=== PATIENT | female | born 1980 | race Caucasian/White ===

== ENCOUNTER 2016-08-28 07:11 | Inpatient (IN) | payer MEDICAID ==
[~2016-08-28] VITALS: Ht 167.6 cm; Wt 90.0 kg
[~2016-08-28 07:11] MED LIST: BUTA-177 PO; CLON-364 PO; FLUO20CA8 PO; GABA-827 PO; INSU100C5 SQ; INSU100I13 SQ; INSU100V5 SQ-INSULIN; INSU100V8 SQ; LISI-167 PO; LORA2TAB99 PO; MULT-194 PO; NORE-88 PO; OMEP-110 PO
[2016-08-28] MEDS ORDERED: ONDANSETRON 2MG/ML, 2ML ONE ×2 (07:35→08:06)
[2016-08-28 07:51] LABS: PH, VENOUS 7.271 pH (7.320-7.420)
[2016-08-28] MEDS ORDERED: ONDANSETRON 2MG/ML, 2ML IVPush ONE ×2 (08:00→08:30)
[2016-08-28] MEDS ORDERED: SODIUM CHLORIDE 0.9% 1,000ML IVBOLUS ONE ×2 (08:00→09:30)
[2016-08-28 08:04] LABS: ASPARTATE AMINO TRANSFERASE 174 U/L (15-37); BLOOD UREA NITROGEN 11 mg/dL (7-18)
[2016-08-28 08:21] LABS: PATH.CAST-FLAG NOT PRESENT; SPERM-FLAG NOT PRESENT; SRC-FLAG NOT PRESENT; XTAL-FLAG NOT PRESENT; YLC-FLAG NOT PRESENT
[2016-08-28] MEDS ORDERED: DIPHENHYDRAMINE 50 MG/ML, 1ML ONE (08:25)
[2016-08-28] MEDS ORDERED: FAMOTIDINE 20 MG/2 ML ONE (08:25)
[2016-08-28] MEDS ORDERED: METOCLOPRAMIDE 5 MG/ML, 2ML ONE (08:25)
[2016-08-28] MEDS ORDERED: METOCLOPRAMIDE 5 MG/ML, 2ML IVPush ONE (08:30)
[2016-08-28] MEDS ORDERED: DIPHENHYDRAMINE 50 MG/ML, 1ML IVPush ONE (08:30)
[2016-08-28] MEDS ORDERED: FAMOTIDINE 20 MG/2 ML IVPush ONE (08:30)
[2016-08-28] MEDS ORDERED: LISI40TA PO (09:41)
[2016-08-28] MEDS ORDERED: SERT25TA PO (09:41)
[2016-08-28] MEDS ORDERED: SODIUM CHLORIDE 0.9% 1,000 ML IV SCH (10:36)
[2016-08-28] MEDS: SODIUM CHLORIDE 0.9% 1,000 ML IV SCH ×2 (10:50→12:00)
[2016-08-28 10:59] LABS: BLOOD UREA NITROGEN 13 mg/dL (7-18)
[2016-08-28] MEDS ORDERED: ONDANSETRON ODT 4 MG PO PRN (11:00)
[2016-08-28] MEDS ORDERED: POLYETHYLENE GLYCOL 17 GM PACKET PO PRN (11:00)
[2016-08-28] MEDS ORDERED: LABETALOL 5MG/ML, 20ML IV PRN (11:00)
[2016-08-28] MEDS ORDERED: GUAIFENESIN/DM 200-20MG, 10ML UDC PO PRN (11:00)
[2016-08-28] MEDS ORDERED: MORPHINE SULFATE 4 MG/ML, 1ML IVPush PRN (11:00)
[2016-08-28] MEDS ORDERED: INSULIN DETEMIR 100 UNITS/ML, PEN SQ-INSULIN SCH (11:30)
[2016-08-28] MEDS: MAALOX/HYOSCYAMINE/LIDOCAINE 45 ML BOTTLE PO SCH ×2 (11:38→22:57)
[2016-08-28] MEDS: INSULIN REGULAR 100 UNITS/ML, 3ML VIAL SQ-INSULIN SCH ×3 (11:41→21:13)
[2016-08-28 11:53] VITALS: BP 148/79
[2016-08-28 12:31] VITALS: BP 145/94
[2016-08-28] MEDS: ENOXAPARIN 40 MG/0.4 ML SQ SCH (12:43)
[2016-08-28 14:18] LABS: BLOOD UREA NITROGEN 11 mg/dL (7-18)
[2016-08-28] MEDS: BUTALB/APAP/CAFFEINE 50MG/325MG/40MG PO PRN (15:18)
[2016-08-28] MEDS: ONDANSETRON 2MG/ML, 2ML IVP PRN (15:29)
[2016-08-28] MEDS: GABAPENTIN 400 MG CAPSULE PO SCH ×2 (16:00→21:12)
[2016-08-28] MEDS ORDERED: PROCHLORPERAZINE 5 MG/ML, 2ML IVPush ONE (17:30)
[2016-08-28] MEDS ORDERED: SODIUM BICARBONATE 8.4% 150 MEQ in DEXTROSE 5% 1,000 ML IV ONE (17:30)
[2016-08-28 20:11] VITALS: BP 139/83
[2016-08-28] MEDS: INSULIN DETEMIR 100 UNITS/ML, PEN SQ-INSULIN SCH (22:56)
[2016-08-29 00:37] LABS: BLOOD UREA NITROGEN 10 mg/dL (7-18)
[2016-08-29 02:59] VITALS: BP 127/76
[2016-08-29 06:05] LABS: BLOOD UREA NITROGEN 9 mg/dL (7-18)
[2016-08-29 07:34] VITALS: BP 131/88
[2016-08-29] MEDS: INSULIN REGULAR 100 UNITS/ML, 3ML VIAL SQ-INSULIN SCH ×4 (08:30→22:21)
[2016-08-29] MEDS: MAALOX/HYOSCYAMINE/LIDOCAINE 45 ML BOTTLE PO SCH ×2 (08:30→22:19)
[2016-08-29] MEDS: MULTIVITAMINS/MINERALS TABLET PO SCH (08:31)
[2016-08-29] MEDS: SENNA/DOCUSATE TABLET PO SCH (08:31)
[2016-08-29] MEDS: GABAPENTIN 400 MG CAPSULE PO SCH ×3 (08:31→22:19)
[2016-08-29] MEDS: BUTALB/APAP/CAFFEINE 50MG/325MG/40MG PO PRN ×2 (08:31→22:19)
[2016-08-29] MEDS: OMEPRAZOLE 20 MG CAPSULE.DR PO SCH (08:31)
[2016-08-29] MEDS: SERTRALINE 50MG TABLET PO SCH (08:32)
[2016-08-29] MEDS: LISINOPRIL 20 MG TABLET PO SCH (08:32)
[2016-08-29] MEDS ORDERED: SODIUM CHLORIDE 0.9% 1,000 ML IV SCH ×2 (10:36)
[2016-08-29] MEDS: ENOXAPARIN 40 MG/0.4 ML SQ SCH (11:55)
[2016-08-29 12:24] VITALS: BP 134/91
[2016-08-29] MEDS: HYDROcodone/APAP 5/325 TABLET PO PRN (17:17)
[2016-08-29 19:55] VITALS: BP 120/90
[2016-08-29] MEDS: INSULIN DETEMIR 100 UNITS/ML, PEN SQ-INSULIN SCH (22:20)
[2016-08-30 01:43] VITALS: BP 120/75
[2016-08-30] MEDS: ONDANSETRON 2MG/ML, 2ML IVP PRN ×2 (05:49→14:30)
[2016-08-30] MEDS: HYDROcodone/APAP 5/325 TABLET PO PRN ×3 (05:49→16:58)
[2016-08-30 05:59] LABS: ASPARTATE AMINO TRANSFERASE 185 U/L (15-37); BLOOD UREA NITROGEN 8 mg/dL (7-18)
[2016-08-30] MEDS: MULTIVITAMINS/MINERALS TABLET PO SCH (07:47)
[2016-08-30] MEDS: OMEPRAZOLE 20 MG CAPSULE.DR PO SCH (07:47)
[2016-08-30] MEDS: GABAPENTIN 400 MG CAPSULE PO SCH ×3 (07:47→21:35)
[2016-08-30] MEDS: LISINOPRIL 20 MG TABLET PO SCH (07:47)
[2016-08-30] MEDS: SERTRALINE 50MG TABLET PO SCH (07:47)
[2016-08-30] MEDS: SENNA/DOCUSATE TABLET PO SCH (07:47)
[2016-08-30] MEDS: INSULIN REGULAR 100 UNITS/ML, 3ML VIAL SQ-INSULIN SCH ×4 (07:49→21:37)
[2016-08-30] MEDS: MAALOX/HYOSCYAMINE/LIDOCAINE 45 ML BOTTLE PO SCH ×2 (09:54→21:37)
[2016-08-30] MEDS: SODIUM CHLORIDE 0.9% 1,000 ML IV SCH ×3 (10:02→21:37)
[2016-08-30] MEDS: ENOXAPARIN 40 MG/0.4 ML SQ SCH (10:47)
[2016-08-30] MEDS: BUTALB/APAP/CAFFEINE 50MG/325MG/40MG PO PRN (14:30)
[2016-08-30 14:42] VITALS: BP 130/82
[2016-08-30 19:19] VITALS: BP 125/84
[2016-08-30] MEDS: INSULIN DETEMIR 100 UNITS/ML, PEN SQ-INSULIN SCH (21:36)
[2016-08-31 02:00] VITALS: BP 131/87
[2016-08-31] MEDS: SODIUM CHLORIDE 0.9% 1,000 ML IV SCH (04:21)
[2016-08-31 06:36] LABS: BLOOD UREA NITROGEN 8 mg/dL (7-18)
[2016-08-31 07:31] VITALS: BP 150/101
[2016-08-31] MEDS: MULTIVITAMINS/MINERALS TABLET PO SCH (08:38)
[2016-08-31] MEDS: GABAPENTIN 400 MG CAPSULE PO SCH (08:39)
[2016-08-31] MEDS: LISINOPRIL 20 MG TABLET PO SCH (08:39)
[2016-08-31] MEDS: OMEPRAZOLE 20 MG CAPSULE.DR PO SCH (08:39)
[2016-08-31] MEDS: MAALOX/HYOSCYAMINE/LIDOCAINE 45 ML BOTTLE PO SCH (08:39)
[2016-08-31] MEDS: SERTRALINE 50MG TABLET PO SCH (08:40)
[2016-08-31] MEDS: SENNA/DOCUSATE TABLET PO SCH (08:41)
[2016-08-31] MEDS: INSULIN REGULAR 100 UNITS/ML, 3ML VIAL SQ-INSULIN SCH (08:43)
[2016-08-31] MEDS: HYDROcodone/APAP 5/325 TABLET PO PRN (09:09)
[2016-08-31] MEDS ORDERED: ALPR-475 PO (09:54)
[2016-08-31] MEDS ORDERED: PNEUMOCOCCAL 23 VACCINE IM-VACC ONE (12:00)
== END 2016-08-31 12:25 | disposition home or self-care (01) | DRG 637 ==
LOC: ED 08:56 → EDIP 09:32 → 4WST 12:17 → DCLOUNGE 08-31 12:03
PROVIDERS: ADMIT Hospitalist; ATTEND Hospitalist
DX: E10.10 Type 1 diabetes mellitus with ketoacidosis without coma (principal); N17.0 Acute kidney failure with tubular necrosis; I10 Essential (primary) hypertension; F17.210 Nicotine dependence, cigarettes, uncomplicated; E86.0 Dehydration; D72.829 Elevated white blood cell count, unspecified; F41.0 Panic disorder [episodic paroxysmal anxiety]; K76.0 Fatty (change of) liver, not elsewhere classified; E10.40 Type 1 diabetes mellitus with diabetic neuropathy, unspecified; Z90.49 Acquired absence of other specified parts of digestive tract; Z79.4 Long term (current) use of insulin
CPT/HCPCS: 36415; 71020; 76700; 80048; 80053; 80061; 81001; 82010; 82040; 82803; 82962; 83036; 83690; 83735; 84100; 84439; 84443; 85025; 90732; 93005; 96361; 96374; 96375; 96376; J1650; J1815; J2405; J7070; Q0162; J0780; J1200; J2765; J7030; S0028

== ENCOUNTER 2016-11-08 04:26 | Inpatient (IN) | payer MEDICAID ==
[~2016-11-08] VITALS: Ht 167.6 cm; Wt 95.4 kg
[~2016-11-08 04:26] MED LIST changes: +ALPR-475 PO; +LISI40TA PO; +SERT25TA PO
[2016-11-08] MEDS ORDERED: ONDANSETRON 2MG/ML, 2ML ONE (04:58)
[2016-11-08] MEDS ORDERED: SODIUM CHLORIDE 0.9% 1,000 ML IV ONE ×2 (05:09→06:44)
[2016-11-08] MEDS ORDERED: FAMOTIDINE 20 MG/2 ML ONE (05:14)
[2016-11-08] MEDS ORDERED: PROMETHAZINE 25 MG/ML, 1ML ONE (05:14)
[2016-11-08] MEDS ORDERED: MORPHINE SULFATE 4 MG/ML, 1ML ONE ×2 (05:14→09:04)
[2016-11-08] MEDS: MORPHINE SULFATE 4 MG/ML, 1ML IVPush PRN ×3 (05:18→20:46)
[2016-11-08] MEDS ORDERED: INSU300I SC (05:26)
[2016-11-08] MEDS ORDERED: PROMETHAZINE 25 MG/ML, 1ML IM ONE (05:30)
[2016-11-08] MEDS ORDERED: SODIUM CHLORIDE 0.9% 1,000ML IVBOLUS ONE ×3 (05:30→07:00)
[2016-11-08] MEDS ORDERED: FAMOTIDINE 20 MG/2 ML IVP ONE (05:30)
[2016-11-08] MEDS ORDERED: SODIUM CHLORIDE FLUSH 10ML SYR IVF ONE (05:30)
[2016-11-08 05:58] LABS: ASPARTATE AMINO TRANSFERASE 164 U/L (15-37); BLOOD UREA NITROGEN 10 mg/dL (7-18)
[2016-11-08] MEDS ORDERED: METOCLOPRAMIDE 5 MG/ML, 2ML ONE (06:26)
[2016-11-08] MEDS ORDERED: METOCLOPRAMIDE 5 MG/ML, 2ML IVPush ONE (06:30)
[2016-11-08] MEDS ORDERED: SODIUM CHLORIDE FLUSH 10ML SYR IVF PRN (07:00)
[2016-11-08] MEDS ORDERED: INSULIN REGULAR 100 UNITS/ML, 3ML VIAL SQ-INSULIN ONE (07:00)
[2016-11-08] MEDS ORDERED: ONDANSETRON 2MG/ML, 2ML IVPush PRN (07:30)
[2016-11-08] MEDS ORDERED: POLYETHYLENE GLYCOL 17 GM PACKET PO PRN (07:30)
[2016-11-08] MEDS ORDERED: ONDANSETRON ODT 4 MG PO PRN (07:30)
[2016-11-08] MEDS ORDERED: LABETALOL 5MG/ML, 20ML IVPush PRN (07:30)
[2016-11-08] MEDS ORDERED: GUAIFENESIN/DM 200-20MG, 10ML UDC PO PRN (07:30)
[2016-11-08] MEDS ORDERED: MAGNESIUM SULFATE PMX 2GM/50ML 50 ML IV ONE (08:00)
[2016-11-08 08:04] LABS: BLOOD UREA NITROGEN 11 mg/dL (7-18)
[2016-11-08 09:03] LABS: BLOOD UREA NITROGEN 13 mg/dL (7-18)
[2016-11-08] MEDS: NS + 20MEQ KCL 1,000 ML IV SCH ×2 (10:06→16:58)
[2016-11-08] MEDS: INSULIN DETEMIR 100 UNITS/ML, PEN SQ-INSULIN SCH ×2 (10:42→22:12)
[2016-11-08] MEDS: SENNA/DOCUSATE TABLET PO SCH (12:02)
[2016-11-08] MEDS: SERTRALINE 50MG TABLET PO SCH (12:02)
[2016-11-08] MEDS: MULTIVITAMINS WITH IRON TABLET PO SCH (12:03)
[2016-11-08] MEDS: LISINOPRIL 20 MG TABLET PO SCH (12:03)
[2016-11-08] MEDS: ENOXAPARIN 40 MG/0.4 ML SQ SCH (12:03)
[2016-11-08] MEDS: OMEPRAZOLE 20 MG CAPSULE.DR PO SCH (12:03)
[2016-11-08] MEDS: GABAPENTIN 400 MG CAPSULE PO SCH ×3 (12:03→20:45)
[2016-11-08] MEDS: INSULIN ASPART 100 UNITS/ML, PEN SQ-INSULIN SCH ×3 (12:04→20:54)
[2016-11-08 12:59] LABS: BLOOD UREA NITROGEN 12 mg/dL (7-18)
[2016-11-08 13:00] VITALS: BP 136/84
[2016-11-08 15:25] LABS: BLOOD UREA NITROGEN 8 mg/dL (7-18)
[2016-11-08] MEDS: ACETAMINOPHEN 325 MG TABLET PO PRN (17:08)
[2016-11-08 18:11] LABS: BLOOD UREA NITROGEN 8 mg/dL (7-18)
[2016-11-08 20:00] VITALS: BP 115/80
[2016-11-08] MEDS ORDERED: MAALOX/HYOSCYAMINE/LIDOCAINE 45 ML BOTTLE PO ONE (20:30)
[2016-11-08] MEDS: SODIUM BICARBONATE 650 MG TABLET PO SCH (20:45)
[2016-11-08] MEDS ORDERED: INSULIN GLARGINE HUM REC ANLOG 54 UNIT SC SCH (21:00)
[2016-11-09] MEDS: NS + 20MEQ KCL 1,000 ML IV SCH ×2 (00:30→06:40)
[2016-11-09 01:23] LABS: BLOOD UREA NITROGEN 7 mg/dL (7-18)
[2016-11-09 02:21] VITALS: BP 110/75
[2016-11-09] MEDS: MORPHINE SULFATE 4 MG/ML, 1ML IVPush PRN (06:20)
[2016-11-09 06:26] LABS: ASPARTATE AMINO TRANSFERASE 68 U/L (15-37); BLOOD UREA NITROGEN 6 mg/dL (7-18)
[2016-11-09 07:00] VITALS: BP 130/88
[2016-11-09] MEDS: INSULIN ASPART 100 UNITS/ML, PEN SQ-INSULIN SCH ×5 (07:00→20:38)
[2016-11-09] MEDS: SODIUM BICARBONATE 650 MG TABLET PO SCH ×2 (08:47→20:38)
[2016-11-09] MEDS: GABAPENTIN 400 MG CAPSULE PO SCH ×3 (08:47→20:38)
[2016-11-09] MEDS: SERTRALINE 50MG TABLET PO SCH (08:48)
[2016-11-09] MEDS: OMEPRAZOLE 20 MG CAPSULE.DR PO SCH (08:48)
[2016-11-09] MEDS: MULTIVITAMINS WITH IRON TABLET PO SCH (08:48)
[2016-11-09] MEDS: LISINOPRIL 20 MG TABLET PO SCH (08:48)
[2016-11-09] MEDS: ENOXAPARIN 40 MG/0.4 ML SQ SCH (08:48)
[2016-11-09] MEDS: INSULIN DETEMIR 100 UNITS/ML, PEN SQ-INSULIN SCH ×2 (08:49→22:07)
[2016-11-09] MEDS: SENNA/DOCUSATE TABLET PO SCH (08:49)
[2016-11-09] MEDS: SODIUM CHLORIDE 0.9% 1,000 ML IV SCH ×2 (11:21→22:06)
[2016-11-09 12:20] VITALS: BP 111/73
[2016-11-09] MEDS: ACETAMINOPHEN 325 MG TABLET PO PRN (17:03)
[2016-11-09 18:27] VITALS: BP 150/97
[2016-11-10 00:57] VITALS: BP 127/78
[2016-11-10 06:10] LABS: ASPARTATE AMINO TRANSFERASE 80 U/L (15-37); BLOOD UREA NITROGEN 6 mg/dL (7-18)
[2016-11-10 08:00] VITALS: BP 141/79
[2016-11-10] MEDS: SODIUM CHLORIDE 0.9% 1,000 ML IV SCH ×2 (08:04→21:12)
[2016-11-10] MEDS: SERTRALINE 50MG TABLET PO SCH (08:36)
[2016-11-10] MEDS: SODIUM BICARBONATE 650 MG TABLET PO SCH ×2 (08:36→21:09)
[2016-11-10] MEDS: OMEPRAZOLE 20 MG CAPSULE.DR PO SCH (08:37)
[2016-11-10] MEDS: MULTIVITAMINS WITH IRON TABLET PO SCH (08:37)
[2016-11-10] MEDS: LISINOPRIL 20 MG TABLET PO SCH (08:37)
[2016-11-10] MEDS: GABAPENTIN 400 MG CAPSULE PO SCH ×3 (08:37→21:10)
[2016-11-10] MEDS: INSULIN DETEMIR 100 UNITS/ML, PEN SQ-INSULIN SCH ×2 (08:37→21:11)
[2016-11-10] MEDS: ENOXAPARIN 40 MG/0.4 ML SQ SCH (08:38)
[2016-11-10] MEDS: SENNA/DOCUSATE TABLET PO SCH (08:38)
[2016-11-10] MEDS: INSULIN ASPART 100 UNITS/ML, PEN SQ-INSULIN SCH ×5 (08:38→21:12)
[2016-11-10] MEDS ORDERED: INSULIN DETEMIR 100 UNITS/ML, PEN SQ-INSULIN ONE (10:00)
[2016-11-10] MEDS ORDERED: INSULIN DETEMIR 100 UNITS/ML, PEN SQ-INSULIN SCH (10:00)
[2016-11-10] MEDS: METRONIDAZOLE PMX 500MG/100ML 100 ML IV SCH ×2 (10:32→17:00)
[2016-11-10] MEDS: HYDROcodone/APAP 5/325 TABLET PO PRN ×2 (10:53→17:00)
[2016-11-10 14:21] VITALS: BP 151/100
[2016-11-10 19:23] VITALS: BP 156/92
[2016-11-10] MEDS ORDERED: ALPRazolam 1MG TABLET ONE (20:56)
[2016-11-10] MEDS: ACETAMINOPHEN 325 MG TABLET PO PRN (21:10)
[2016-11-11] MEDS: METRONIDAZOLE PMX 500MG/100ML 100 ML IV SCH ×3 (00:44→17:41)
[2016-11-11 02:00] VITALS: BP 124/81
[2016-11-11] MEDS: HYDROcodone/APAP 5/325 TABLET PO PRN ×3 (05:27→17:41)
[2016-11-11 05:53] LABS: BLOOD UREA NITROGEN 9 mg/dL (7-18)
[2016-11-11 07:22] VITALS: BP 126/81
[2016-11-11] MEDS: SERTRALINE 50MG TABLET PO SCH (08:52)
[2016-11-11] MEDS: SODIUM CHLORIDE 0.9% 1,000 ML IV SCH (08:52)
[2016-11-11] MEDS: SENNA/DOCUSATE TABLET PO SCH (08:52)
[2016-11-11] MEDS: OMEPRAZOLE 20 MG CAPSULE.DR PO SCH (08:52)
[2016-11-11] MEDS: GABAPENTIN 400 MG CAPSULE PO SCH ×3 (08:53→20:53)
[2016-11-11] MEDS: ENOXAPARIN 40 MG/0.4 ML SQ SCH (08:53)
[2016-11-11] MEDS: SODIUM BICARBONATE 650 MG TABLET PO SCH ×2 (08:53→20:53)
[2016-11-11] MEDS: LISINOPRIL 20 MG TABLET PO SCH (08:53)
[2016-11-11] MEDS: MULTIVITAMINS WITH IRON TABLET PO SCH (08:53)
[2016-11-11] MEDS: INSULIN DETEMIR 100 UNITS/ML, PEN SQ-INSULIN SCH ×2 (08:54→20:55)
[2016-11-11] MEDS: INSULIN ASPART 100 UNITS/ML, PEN SQ-INSULIN SCH ×4 (08:54→20:57)
[2016-11-11 13:43] VITALS: BP 142/92
[2016-11-11] MEDS ORDERED: INSULIN DETEMIR 100 UNITS/ML, PEN SQ-INSULIN ONE (15:00)
[2016-11-11] MEDS ORDERED: INSULIN DETEMIR 100 UNITS/ML, PEN SQ-INSULIN SCH (15:00)
[2016-11-11 18:53] VITALS: BP 151/98
[2016-11-11] MEDS ORDERED: ALPRazolam 1MG TABLET ONE (20:44)
[2016-11-12] MEDS: METRONIDAZOLE PMX 500MG/100ML 100 ML IV SCH ×2 (01:47→09:50)
[2016-11-12 02:13] VITALS: BP 138/79
[2016-11-12 06:08] LABS: BLOOD UREA NITROGEN 10 mg/dL (7-18)
[2016-11-12 06:13] LABS: ASPARTATE AMINO TRANSFERASE 101 U/L (15-37)
[2016-11-12] MEDS: HYDROcodone/APAP 5/325 TABLET PO PRN (06:16)
[2016-11-12 07:19] VITALS: BP 151/99
[2016-11-12] MEDS ORDERED: METR500T PO (07:34)
[2016-11-12] MEDS: SERTRALINE 50MG TABLET PO SCH (09:44)
[2016-11-12] MEDS: SODIUM BICARBONATE 650 MG TABLET PO SCH (09:45)
[2016-11-12] MEDS: SENNA/DOCUSATE TABLET PO SCH (09:45)
[2016-11-12] MEDS: ENOXAPARIN 40 MG/0.4 ML SQ SCH (09:46)
[2016-11-12] MEDS: GABAPENTIN 400 MG CAPSULE PO SCH (09:47)
[2016-11-12] MEDS: OMEPRAZOLE 20 MG CAPSULE.DR PO SCH (09:47)
[2016-11-12] MEDS: LISINOPRIL 20 MG TABLET PO SCH (09:49)
[2016-11-12] MEDS: MULTIVITAMINS WITH IRON TABLET PO SCH (09:49)
[2016-11-12] MEDS: INSULIN ASPART 100 UNITS/ML, PEN SQ-INSULIN SCH ×2 (09:52→11:47)
[2016-11-12] MEDS: INSULIN DETEMIR 100 UNITS/ML, PEN SQ-INSULIN SCH (09:54)
== END 2016-11-12 11:50 | disposition home or self-care (01) | DRG 638 ==
LOC: ED 06:02 → EDIP 06:44 → 4EST 09:11
PROVIDERS: ADMIT Hospitalist; ATTEND Hospitalist
DX: E10.10 Type 1 diabetes mellitus with ketoacidosis without coma (principal); R17 Unspecified jaundice; A04.7 Enterocolitis due to Clostridium difficile; I10 Essential (primary) hypertension; F41.9 Anxiety disorder, unspecified; E86.0 Dehydration; R74.0 Nonspecific elevation of levels of transaminase and lactic acid dehydrogenase [LDH]; Z88.8 Allergy status to other drugs, medicaments and biological substances; Z88.0 Allergy status to penicillin; Z87.891 Personal history of nicotine dependence; Z90.49 Acquired absence of other specified parts of digestive tract; Z79.899 Other long term (current) drug therapy; Z79.4 Long term (current) use of insulin
CPT/HCPCS: 36415; 76700; 80048; 80053; 81003; 82010; 82040; 82800; 82962; 83036; 83605; 83690; 83735; 84100; 84439; 84703; 85025; 87324; 87493; 93005; 96361; 96372; 96374; 96375; 96376; J1650; J1815; J2405; J2550; J3480; J2765; J3475; J7030; S0028

== ENCOUNTER 2017-04-11 18:04 | Emergency (ER) | payer MEDICAID ==
[~2017-04-11] VITALS: Ht 167.6 cm; Wt 93.0 kg
[~2017-04-11 18:04] MED LIST changes: +INSU300I SC; +METR500T PO
[2017-04-11] MEDS ORDERED: SODIUM CHLORIDE FLUSH 10ML SYR IVF ONE (19:00)
[2017-04-11] MEDS ORDERED: ASPIRIN 81 MG TABLET CHEW PO ONE (19:00)
[2017-04-11] MEDS ORDERED: ONDANSETRON 2MG/ML, 2ML IVPush ONE (19:00)
[2017-04-11] MEDS ORDERED: LORazepam 2 MG/ML, 1ML IVPush ONE (19:00)
[2017-04-11 19:12] LABS: HEMOGLOBIN 13.9 g/dL (11.7-16.4); WHITE BLOOD COUNT 9.4 x10^3/uL (3.4-10)
[2017-04-11] MEDS ORDERED: ONDANSETRON 2MG/ML, 2ML ONE (19:19)
[2017-04-11] MEDS ORDERED: LORazepam 2 MG/ML, 1ML ONE (19:19)
[2017-04-11] MEDS ORDERED: ASPIRIN 81 MG TABLET CHEW ONE (19:19)
[2017-04-11 19:23] LABS: BLOOD UREA NITROGEN 11 mg/dL (7-18)
[2017-04-11 19:30] LABS: IS PT STATUS REG ER OR PRE ER? YES
[2017-04-11 20:48] VITALS: BP 131/74
== END 2017-04-11 20:59 | disposition home or self-care (01) ==
LOC: ED 20:51
DX: F43.0 Acute stress reaction (principal); F32.9 Major depressive disorder, single episode, unspecified; F41.9 Anxiety disorder, unspecified; E11.10 Type 2 diabetes mellitus with ketoacidosis without coma; E11.65 Type 2 diabetes mellitus with hyperglycemia; I10 Essential (primary) hypertension; Z90.49 Acquired absence of other specified parts of digestive tract
CPT/HCPCS: 36415; 71010; 80048; 82040; 83880; 84484; 85025; 93005; 96374; 96375; 99285; J2060; J2405

== ENCOUNTER 2017-07-06 21:19 | Inpatient (IN) | payer MEDICAID ==
[~2017-07-06] VITALS: Ht 167.6 cm; Wt 99.0 kg
[2017-07-06] MEDS ORDERED: HYDROcodone/APAP 5/325 TABLET ONE (23:26)
[2017-07-06] MEDS ORDERED: HYDROcodone/APAP 5/325 TABLET PO ONE (23:30)
[2017-07-07] MEDS ORDERED: SODIUM CHLORIDE FLUSH 10ML SYR IVF ONE (00:30)
[2017-07-07 01:09] LABS: BASOPHILS # (AUTO) 0.02 x10^3/uL (0-0.1); BASOPHILS % (AUTO) 0 % (0-1); EOSINOPHILS % (AUTO) 2 % (1-7); LYMPHOCYTES # (AUTO) 1.42 x10^3/uL (1-3.4); LYMPHOCYTES % (AUTO) 24 % (22-44); MD NO; MEAN CORPUSCULAR HEMOGLOBIN 31.8 pg (27.0-34.8); MEAN CORPUSCULAR HGB CONC 34.6 g/dL (32.4-35.8); MEAN CORPUSCULAR VOLUME 92.1 fL (80-100); MEAN PLATELET VOLUME 7.3 fL (7.4-10.4); MONOCYTES # (AUTO) 0.69 x10^3/uL (0.2-0.8); MONOCYTES % (AUTO) 11 % (2-9); NEUTROPHILS # (AUTO) 3.83 x10^3/uL (1.8-6.8); NEUTROPHILS % (AUTO) 63 % (42-75); PLATELET COUNT 128 x10^3/uL (130-400); RED BLOOD COUNT 4.47 x10^6/uL (3.82-5.3)
[2017-07-07] MEDS ORDERED: MORPHINE SULFATE 4 MG/ML, 1ML ONE ×2 (01:13→05:54)
[2017-07-07 01:21] LABS: ALBUMIN 3.4 g/dL (3.4-5.0); ANION GAP 12 mmol/L (5-15); CALCIUM 8.6 mg/dL (8.5-10.1); CHLORIDE 97 mmol/L (98-107); CREATININE 0.69 mg/dL (0.55-1.02)
[2017-07-07] MEDS ORDERED: MORPHINE SULFATE 4 MG/ML, 1ML IVPush PRN ×2 (01:30→05:00)
[2017-07-07] MEDS ORDERED: OMNIPAQUE 350 MG/ML, 75ML BOTTLE ONE (01:57)
[2017-07-07] MEDS ORDERED: AMPICILLIN/SULBACTAM 3 GM in SODIUM CHLORIDE 0.9% 100 ML IV ONE (02:00)
[2017-07-07] MEDS ORDERED: HYDROcodone/APAP 5/325 TABLET PO ONE (03:30)
[2017-07-07] MEDS ORDERED: HYDROcodone/APAP 5/325 TABLET ONE (03:32)
[2017-07-07] MEDS ORDERED: VENL150C PO (03:42)
[2017-07-07] MEDS ORDERED: CLON-365 PO (03:42)
[2017-07-07] MEDS ORDERED: NS + 20MEQ KCL 1,000 ML IV SCH (05:00)
[2017-07-07] MEDS ORDERED: SODIUM CHLORIDE FLUSH 10ML SYR IVF PRN (05:00)
[2017-07-07] MEDS ORDERED: ONDANSETRON 2MG/ML, 2ML IVPush PRN ×3 (05:00→17:30)
[2017-07-07] MEDS ORDERED: NS + 20MEQ KCL 1,000 ML IV ONE (05:56)
[2017-07-07] MEDS ORDERED: GLUCAGON 1 MG IM PRN (07:30)
[2017-07-07] MEDS ORDERED: DEXTROSE 50%, 50ML SYRINGE IVPush PRN (07:30)
[2017-07-07] MEDS ORDERED: INSULIN LISPRO 100 UNITS/ML, PEN SQ-INSULIN SCH (07:30)
[2017-07-07] MEDS ORDERED: PANTOPRAZOLE 40 MG IV IVPush SCH (07:30)
[2017-07-07] MEDS ORDERED: DEXTROSE 4 GM TAB.CHEW PO PRN (07:30)
[2017-07-07] MEDS ORDERED: KETOROLAC 30 MG/1 ML IVPush ONE (07:30)
[2017-07-07] MEDS: SODIUM CHLORIDE FLUSH 10ML SYR IVF SCH ×2 (07:45→21:59)
[2017-07-07 08:13] VITALS: BP 156/99
[2017-07-07] MEDS: POTASSIUM CHLORIDE 40 MEQ in D5%-LACTATED RINGERS 1,000 ML IV SCH ×2 (08:18→21:06)
[2017-07-07] MEDS: AMPICILLIN/SULBACTAM 3 GM in SODIUM CHLORIDE 0.9% 100 ML IV SCH ×3 (08:19→23:19)
[2017-07-07] MEDS: INSULIN LISPRO 100 UNITS/ML, PEN SQ-INSULIN SCH ×3 (08:20→21:58)
[2017-07-07 09:46] LABS: HCG UR SG 1.018 (1.003-1.030)
[2017-07-07] MEDS: morphine SULFATE 10 MG/ML, 1ML IVPush PRN ×3 (10:31→14:00)
[2017-07-07 14:25] VITALS: BP 156/80
[2017-07-07] MEDS ORDERED: MIDAZOLAM 1 MG/ML, 2ML ONE (16:25)
[2017-07-07] MEDS ORDERED: LIDOCAINE-MPF 2% ,5ML ONE (16:25)
[2017-07-07] MEDS ORDERED: FENTANYL PF 100 MCG/2ML ONE ×2 (16:25→17:50)
[2017-07-07] MEDS ORDERED: LIDOCAINE GEL 2%, 5ML ONE (16:28)
[2017-07-07] MEDS ORDERED: EPINEPHRINE 1 MG/ML, 1ML ONE (17:00)
[2017-07-07] MEDS ORDERED: BUPIVACAINE/PF 0.25% ONE (17:01)
[2017-07-07] MEDS ORDERED: ROCURONIUM 10MG/ML,5ML ONE (17:03)
[2017-07-07] MEDS ORDERED: SUCCINYLCHOLINE 20 MG/ML, 10ML ONE (17:03)
[2017-07-07] MEDS ORDERED: BUPIVACAINE/PF-EPI 0.25% 1:200K INFIL ONE (17:21)
[2017-07-07] MEDS ORDERED: PROPOFOL 10 MG/ML, 20ML ONE (17:24)
[2017-07-07] MEDS ORDERED: ONDANSETRON 2MG/ML, 2ML ONE (17:24)
[2017-07-07] MEDS ORDERED: DEXAMETHASONE 4 MG/ML, 1ML ONE (17:24)
[2017-07-07] MEDS ORDERED: CEFAZOLIN 1,000 MG ONE (17:24)
[2017-07-07] MEDS ORDERED: MEPERIDINE/PF 25MG/0.5ML IVPush PRN (17:30)
[2017-07-07] MEDS ORDERED: DIAZEPAM 5 MG/ML, 2ML IVPush PRN (17:30)
[2017-07-07] MEDS ORDERED: PROMETHAZINE 25 MG/ML, 1ML IV PRN (17:30)
[2017-07-07] MEDS ORDERED: hydrALAzine 20 MG/ML, 1ML IV PRN (17:30)
[2017-07-07] MEDS ORDERED: LABETALOL 5MG/ML, 20ML IV PRN (17:30)
[2017-07-07] MEDS ORDERED: ACETAMINOPHEN 325 MG TABLET PO PRN (17:30)
[2017-07-07] MEDS ORDERED: LORazepam 2 MG/ML, 1ML IVPush PRN (17:30)
[2017-07-07] MEDS ORDERED: ALBUTEROL/IPRATROPIUM 2.5MG/0.5MG, 3 ML NPPB PRN (17:30)
[2017-07-07] MEDS ORDERED: MIDAZOLAM 1 MG/ML, 2ML IV PRN (17:30)
[2017-07-07] MEDS ORDERED: HYDROmorphone 1 MG/ML, 1ML IV PRN (17:30)
[2017-07-07] MEDS ORDERED: OXYcodone 5 MG/5 ML ORAL.SOL UDC PO PRN (17:30)
[2017-07-07] MEDS ORDERED: OXYcodone 5 MG/5 ML ORAL.SOL UDC ONE (17:50)
[2017-07-07] MEDS: FENTANYL PF 100 MCG/2ML IV PRN ×2 (17:54→18:07)
[2017-07-07 20:19] VITALS: BP 152/94
[2017-07-07] MEDS ORDERED: CHLORHEXIDINE GLUCONATE MOUTHWASH 0.12%, 473ML MM SCH (21:00)
[2017-07-07] MEDS: OXYcodone IR 5MG TABLET PO PRN (21:57)
[2017-07-07 23:32] VITALS: BP 129/78
[2017-07-08] MEDS: OXYcodone IR 5MG TABLET PO PRN ×3 (02:32→11:03)
[2017-07-08 04:43] VITALS: BP 105/68
[2017-07-08] MEDS: AMPICILLIN/SULBACTAM 3 GM in SODIUM CHLORIDE 0.9% 100 ML IV SCH ×2 (05:11→11:08)
[2017-07-08] MEDS ORDERED: PANTOPROZOLE 40MG TABLET PO SCH (07:30)
[2017-07-08] MEDS ORDERED: PANTOPROZOLE 40MG TABLET ONE (07:58)
[2017-07-08] MEDS: INSULIN LISPRO 100 UNITS/ML, PEN SQ-INSULIN SCH ×2 (08:01→11:43)
[2017-07-08 08:31] VITALS: BP 128/85
[2017-07-08] MEDS ORDERED: CHLORHEXIDINE 15 ML BOTTLE MM SCH (09:00)
[2017-07-08] MEDS ORDERED: ONDA4TAB10 PO (11:33)
[2017-07-08] MEDS ORDERED: CHLO473M MM (11:33)
[2017-07-08] MEDS ORDERED: AMOX1TAB64 PO (11:33)
[2017-07-08] MEDS ORDERED: OXYC-302 PO (12:01)
[2017-07-09] MEDS ORDERED: PANTOPROZOLE 40MG TABLET PO SCH (07:30)
== END 2017-07-08 12:30 | disposition home or self-care (01) | DRG 137 ==
LOC: ED 23:59 → EDIP 07-07 04:32 → 4NOR 07-07 06:49
PROVIDERS: ADMIT Dentist; ATTEND Dentist
PROC: 0W950ZZ Drainage of Lower Jaw, Open Approach (ICD-10-PCS; 2017-07-07)
PROC: 0CDXXZ0 Extraction of Lower Tooth, Single, External Approach (ICD-10-PCS; principal; 2017-07-07 19:30)
DX: K04.7 Periapical abscess without sinus (principal); K12.2 Cellulitis and abscess of mouth; K50.90 Crohn's disease, unspecified, without complications; E10.9 Type 1 diabetes mellitus without complications; E87.6 Hypokalemia; F41.9 Anxiety disorder, unspecified; L02.01 Cutaneous abscess of face; I10 Essential (primary) hypertension; K02.9 Dental caries, unspecified; K21.9 Gastro-esophageal reflux disease without esophagitis; M27.2 Inflammatory conditions of jaws; S02.5XXA Fracture of tooth (traumatic), initial encounter for closed fracture; Z88.8 Allergy status to other drugs, medicaments and biological substances
CPT/HCPCS: 36415; 70100; 70487; 80048; 81025; 82040; 82962; 85025; 93005; 96365; 96375; J0171; J0295; J0690; J1100; J1885; J2250; J2405; J2704; J3010; J3480; J3490; Q9967; C9113; J0330; J1815; J2270; J7121

== ENCOUNTER 2017-09-18 19:59 | Emergency (ER) | payer SELFPAY ==
[~2017-09-18] VITALS: Ht 162.6 cm; Wt 90.0 kg
[~2017-09-18 19:59] MED LIST changes: +AMOX1TAB64 PO; +CHLO473M MM; +CLON-365 PO; +ONDA4TAB10 PO; +OXYC-302 PO; +VENL150C PO
[2017-09-18] MEDS ORDERED: SODIUM CHLORIDE FLUSH 10ML SYR IVF ONE (20:30)
[2017-09-18] MEDS ORDERED: ONDANSETRON ODT 4 MG PO ONE (20:30)
[2017-09-18] MEDS ORDERED: SODIUM CHLORIDE 0.9% 1,000ML IVBOLUS ONE (20:30)
[2017-09-18 20:33] LABS: BASOPHILS # (AUTO) 0.02 x10^3/uL (0-0.1); BASOPHILS % (AUTO) 0 % (0-1); EOSINOPHILS # (AUTO) 0.19 x10^3/uL (0-0.4); EOSINOPHILS % (AUTO) 2 % (1-7); LYMPHOCYTES # (AUTO) 4.42 x10^3/uL (1-3.4); LYMPHOCYTES % (AUTO) 47 % (22-44); MD NO; MEAN CORPUSCULAR HEMOGLOBIN 31.1 pg (27.0-34.8); MEAN CORPUSCULAR HGB CONC 34.4 g/dL (32.4-35.8); MEAN CORPUSCULAR VOLUME 90.4 fL (80-100); MEAN PLATELET VOLUME 7.8 fL (7.4-10.4); MONOCYTES # (AUTO) 0.58 x10^3/uL (0.2-0.8); MONOCYTES % (AUTO) 6 % (2-9); NEUTROPHILS # (AUTO) 4.21 x10^3/uL (1.8-6.8); NEUTROPHILS % (AUTO) 45 % (42-75); PLATELET COUNT 316 x10^3/uL (130-400); RED CELL DISTRIBUTION WIDTH 13.1 % (9.6-15.2)
[2017-09-18 20:41] LABS: ALBUMIN 4.1 g/dL (3.4-5.0); ANION GAP 17 mmol/L (5-15); CALCIUM 8.8 mg/dL (8.5-10.1); CHLORIDE 105 mmol/L (98-107); CREATININE 0.75 mg/dL (0.55-1.02)
[2017-09-18 20:45] LABS: ACETONE, SERUM Trace (10mg/dL) mg/dL (Negative)
[2017-09-18] MEDS ORDERED: ONDANSETRON ODT 4 MG ONE (21:04)
[2017-09-18 21:15] LABS: PH, VENOUS 7.353 pH (7.320-7.420)
[2017-09-18 21:48] LABS: MICROSCOPIC AUTO
[2017-09-18 21:51] LABS: CULTURE INDICATED? YES
[2017-09-18 21:53] LABS: HCG UR SG 1.041 (1.003-1.030)
[2017-09-18 22:58] VITALS: BP 121/75
== END 2017-09-18 23:00 | disposition home or self-care (01) ==
LOC: ED 21:43
DX: R10.84 Generalized abdominal pain (principal); R11.2 Nausea with vomiting, unspecified; E11.65 Type 2 diabetes mellitus with hyperglycemia; E11.10 Type 2 diabetes mellitus with ketoacidosis without coma; I10 Essential (primary) hypertension; K50.90 Crohn's disease, unspecified, without complications
CPT/HCPCS: 36415; 80048; 81001; 81025; 82010; 82040; 82803; 82962; 85025; 87086; 96360; 96361; 99285; J7030; Q0162

== ENCOUNTER 2018-03-12 08:06 | Emergency (ER) | payer BC, OTHER ==
[~2018-03-12] VITALS: Ht 167.6 cm; Wt 90.0 kg
[~2018-03-12 08:06] MED LIST changes: -CLON-364 PO; -CLON-365 PO; +CLON0.5T11 PO; +CLON1TAB11 PO
[2018-03-12 08:10] VITALS: BP 113/89
[2018-03-12] MEDS ORDERED: KETOROLAC 30 MG/1 ML ONE (08:58)
[2018-03-12] MEDS ORDERED: KETOROLAC 30 MG/1 ML IM/IV ONE (09:00)
== END 2018-03-12 09:27 | disposition home or self-care (01) ==
LOC: ED 09:21
DX: M72.2 Plantar fascial fibromatosis (principal); I10 Essential (primary) hypertension; E11.9 Type 2 diabetes mellitus without complications; F41.1 Generalized anxiety disorder; Z90.49 Acquired absence of other specified parts of digestive tract
CPT/HCPCS: 73630; 96372; 99284; J1885; 96374